=== PATIENT | female | born 1955 | race Caucasian/White ===

== ENCOUNTER 2016-10-15 12:08 | Emergency (ER) | payer BC ==
[2016-10-15 12:23] VITALS: RESP 18
--- NOTE | 2016-10-15 13:09 | ED ---
ENT HPI - General Chief complaint: Dental/Oral Stated complaint: Oral Pain Time Seen by Provider: 10/15/16 12:31 Source: patient, RN notes reviewed Mode of arrival: ambulatory Limitations: no limitations - History of Present Illness Initial comments: 61-year-old female presents emergency Department chief complaint possible tooth in throat or lung. She states that she's had a dental extraction today and which a piece went towards the back of her throat states that she started gagging and ended up swallowing it. Jonny was concerned that she may have aspirated a piece of tooth and was sent for chest x-ray. Patient has no complaints of shortness of breath. She states that she felt like it scratched her throat but has no difficulty swallowing at this time. - Related Data Home Medications Medication Instructions Recorded Confirmed Cyclobenzaprine [Flexeril] 10 mg PO HS 10/15/16 10/15/16 Gabapentin [Neurontin] 100 mg PO DAILY 10/15/16 10/15/16 HYDROcodone/APAP 5-325MG [[place] 5 mg PO Q6H 10/15/16 10/15/16 5-325] Losartan [Cozaar] 25 mg PO DAILY 10/15/16 10/15/16 Simvastatin [Zocor] 10/15/16 Allergies Allergy/AdvReac Type Severity Reaction Status Date / Time cephalexin [From Keflex] Allergy Nausea & Verified 10/15/16 12:23 Vomiting Review of Systems ROS Statement: Those systems with pertinent positive or pertinent negative responses have been documented in the HPI. ROS Other: All systems not noted in ROS Statement are negative. Past Medical History Past Medical History: Fibromyalgia, Hyperlipidemia, Hypertension, Osteoarthritis (OA), Renal Disease History of Any Multi-Drug Resistant Organisms: None Reported Past Surgical History: Appendectomy, Cholecystectomy, Hysterectomy, Tonsillectomy Past Psychological History: No Psychological Hx Reported Smoking Status: Never smoker Past Alcohol Use History: None Reported Past Drug Use History: None Reported General Exam Limitations: no limitations General appearance: alert, in no apparent distress Head exam: Present: atraumatic, normocephalic, normal inspection Eye exam: Present: normal appearance, PERRL, EOMI. Absent: scleral icterus, conjunctival injection, periorbital swelling ENT exam: Present: mucous membranes moist, TM's normal bilaterally, normal external ear exam. Absent: normal exam, normal oropharynx (Dental extractions noted left upper and lower minimal venous ooze) Neck exam: Present: normal inspection, full ROM. Absent: tenderness, meningismus, lymphadenopathy Respiratory exam: Present: normal lung sounds bilaterally. Absent: respiratory distress, wheezes, rales, rhonchi, stridor Cardiovascular Exam: Present: regular rate, normal rhythm, normal heart sounds. Absent: systolic murmur, diastolic murmur, rubs, gallop, clicks Skin exam: Present: warm, dry, intact, normal color. Absent: rash Course Vital Signs 10/15/16 12:17 Temperature 97.0 F L Pulse Rate 64 Respiratory 18 Rate Blood Pressure 149/72 O2 Sat by Pulse 98 Oximetry Medical Decision Making - Medical Decision Making 61-year-old female presented for possible swallowing of tooth. There is no evidence of soft tissue neck x-ray or chest x-ray. Most likely swallowed the piece of tooth. She states that the swelling or. At this time. Disposition Clinical Impression: Foreign body, swallowed Disposition: HOME SELF-CARE Condition: Stable Instructions: Foreign Body Ingestion (ED) Additional Instructions: Please return to the Emergency Department if symptoms worsen or any other concerns. Referrals: Manfred Lopez MD [Primary Care Provider] - 1-2 days Time of Disposition: 13:28
--- NOTE | 2016-10-15 13:17 | XR ---
EXAMINATION TYPE: XR chest 2V DATE OF EXAM: 10/15/2016 COMPARISON: NONE HISTORY: Possible foreign body. Tooth extraction. TECHNIQUE: Frontal and lateral views of the chest are obtained. FINDINGS: There is no heart failure nor confluent pneumonic infiltrate. There are no hilar masses. C ostophrenic angles are clear. Bony thorax is intact. IMPRESSION: No active cardiopulmonary disease. Normal heart. No evidence of a radiopaque foreign bod y.
--- NOTE | 2016-10-15 13:18 | XR ---
EXAMINATION TYPE: XR soft tissue neck DATE OF EXAM: 10/15/2016 COMPARISON: NONE HISTORY: Possible foreign body TECHNIQUE: 2 views FINDINGS: Epiglottis is normal. Subglottic trachea is normal. I see no evidence of a foreign body. Th ere are spondylotic changes in the lower cervical spine. IMPRESSION: Negative cervical soft tissue exam. No sign of a foreign body.
[2016-10-15 13:34] VITALS: BP 122/69; PULSE 50; TEMP 97.6
== END 2016-10-15 13:34 | disposition home or self-care (01) ==
LOC: EC 12:08
DX: T18.9XXA Foreign body of alimentary tract, part unspecified, initial encounter (principal); K08.109 Complete loss of teeth, unspecified cause, unspecified class; E78.5 Hyperlipidemia, unspecified; I10 Essential (primary) hypertension; M79.7 Fibromyalgia; Z79.891 Long term (current) use of opiate analgesic; Z79.899 Other long term (current) drug therapy; Z88.1 Allergy status to other antibiotic agents
CPT/HCPCS: 70360; 71020; 99283

== ENCOUNTER → 2020-12-07 | Outpatient (CLI) | payer MEDICARE ==
--- NOTE | 2020-12-07 11:58 | MR ---
EXAMINATION TYPE: MR shoulder RT wo con DATE OF EXAM: 12/07/2020 11:39 AM COMPARISON: NONE HISTORY: Right shoulder pain, decreased ROM. TECHNIQUE: Multiplanar multispin echo imaging of the right shoulder was performed. FINDINGS: Rotator cuff : Full thickness retracted tear of the supraspinatus tendon with fluid filled gap of lin roximately 2.1 cm. The remaining constituents of the rotator cuff are intact. There is elevation of t he humeral head relative to the central glenoid axis indicating a chronic process. Bursa: No bursal effusion or thickening is seen. Musculature: There is no muscular tear, contusion, or atrophy. Acromioclavicular joint : Moderate AC joint arthropathy. Subacromial narrowing compatible with imping ement. Osseous structures : There are no fractures or regions of abnormal bone marrow signal intensity. Long biceps tendon : The biceps tendon is normally situated within the bicipital groove. No complete or partial biceps tendon tear is present. Glenohumeral Joint fluid : Moderate joint effusion seen. Cartilage and Bone : No focal hyaline cartilage defects are noted. No Hill-Sachs, reverse Hill-Sachs, or bony Bankart lesions are seen. Labrum : There are no SLAP or soft tissue Bankart lesions. No paralabral cysts are seen. OTHER FINDINGS : none IMPRESSION: 1. Full-thickness retracted tear supraspinatus tendon with elevation of the right humeral head relati ve to the central glenoid axis and mild atrophy of the supraspinatus tendon indicating a chronic proc ess.
== END | disposition home or self-care (01) ==
LOC: RADMRIMAIN 10:51
PROVIDERS: ATTEND Orthopaedic Surgery
DX: M75.121 Complete rotator cuff tear or rupture of right shoulder, not specified as traumatic (principal)

== ENCOUNTER 2021-01-21 08:34 | Day surgery (SDC) | payer MEDICARE ==
[2021-01-20 09:43] VITALS: BMI 32.1
--- NOTE | 2021-01-20 19:32 | HP ---
HISTORY AND PHYSICAL DATE OF SURGERY: 01/21/2021 Fariha Britton is a 65-year-old patient seen with progressive right shoulder pain. We discussed options for treatment. She elected to proceed with arthroscopy. Consent was obtained. PAST MEDICAL HISTORY: Hypertension. PAST SURGICAL HISTORY: Hysterectomy. DAILY MEDICATIONS: Hydrochlorothiazide, lisinopril, hydrocodone. ALLERGIES: NONE. SOCIAL HISTORY: She denies tobacco use. PHYSICAL EVALUATION OF THE RIGHT SHOULDER: Flexion is 40 degrees. Abduction is 20 degrees. External rotation is 10 degrees with significant weakness. Tenderness along the anterolateral acromion and rotator cuff insertion site. Impingement is positive at 80 degrees. Drop-arm sign is positive. Cross-body adduction sign is positive. Distal neurovascular exam is intact. IMAGING: Right shoulder radiographs revealed a type 2 acromion, evidence for acromioclavicular joint osteoarthritis and cystic changes of the tuberosity. Right shoulder MRI revealed a retracted rotator cuff tear along with muscular atrophy, impingement and acromioclavicular joint osteoarthritis. IMPRESSION: 1. Right shoulder impingement with rotator cuff tear. 2. Right shoulder acromioclavicular joint osteoarthritis. 3. Hypertension. 4. Chronic opioid use. PLAN: Right shoulder arthroscopy with subacromial decompression, arthroscopic rotator cuff repair, Rafael procedure and debridement. MMODL / IJN: [id number] /
[~2021-01-21 08:34] MED LIST: DEXAMETHASONE SOD PHOSPHATE 4 MG/ML 1 ML VIAL IV ONE; LACTATED RINGERS 1,000 ML IV SCH; LIDOCAINE 1% (10MG/ML) FOR IV START INTRADERMA PRN; MIDAZOLAM 2 MG/2 ML VIAL IV PRN; ONDANSETRON 4 MG/2 ML VIAL IVP ONE
[2021-01-21 09:12] VITALS: RESP 16
[2021-01-21] MEDS ORDERED: MIDAZOLAM 2 MG/2 ML VIAL ONE (10:10)
[2021-01-21] MEDS ORDERED: DEXAMETHASONE SOD PHOSPHATE 4 MG/ML 1 ML VIAL ONE (10:10)
[2021-01-21] MEDS ORDERED: fentaNYL (PF) 50 MCG/ML 2 ML AMP ONE (10:10)
[2021-01-21] MEDS ORDERED: LIDOCAINE 1% INJ 10MG/ML (20 ML MDV) ONE (10:10)
[2021-01-21] MEDS ORDERED: ROPIVACAINE 5 MG/ML 30 ML VIAL ONE (10:10)
[2021-01-21] MEDS ORDERED: PROPOFOL 10 MG/ML 20 ML VIAL IV ONE (10:10)
[2021-01-21] MEDS ORDERED: SUCCINYLCHOLINE CHLORIDE 100 MG/5 ML SYR IV ONE (10:10)
[2021-01-21] MEDS ORDERED: LACTATED RINGERS 1,000 ML IV ONE (12:01)
--- NOTE | 2021-01-21 12:05 | P.OP ---
Date of Procedure: 01/21/21 Preoperative Diagnosis: Right shoulder impingement Postoperative Diagnosis: 1. Right shoulder massive retracted rotator cuff tendon tear 2. Right shoulder impingement 3. Right shoulder acromioclavicular joint osteoarthritis 4. Right shoulder partial long head biceps tendon tear Procedure(s) Performed: 1. Right shoulder arthroscopic rotator cuff repair 2. Right shoulder arthroscopic subacromial decompression 3. Right shoulder arthroscopic Rafael procedure 4. Right shoulder arthroscopic biceps tenotomy Implants: 5Arthrex swivel lock anchors Anesthesia: GETA, regional (Interscalene block) Surgeon: Antony Roe Packer And Carry Out #1: Mark Rogers Estimated Blood Loss (ml): 11 Pathology: none sent Condition: stable Disposition: PACU Indications for Procedure: 65-year-old patient seen with progressive right shoulder pain. After treatment options were discussed, she elected to proceed with arthroscopy. Operative Findings: See description of procedure Description of Procedure: Patient underwent an interscalene block by department of anesthesia. The patient was then taken to the operative suite. The patient underwent a general anesthetic by the department of anesthesia. The patient was placed into a lateral position and secured. There was appropriate padding of the bony prominence. Right shoulder was then prepped and draped in normal sterile orthopedic fashion. We placed the extremity in 10 pounds of longitudinal traction. A posterior incision was now made for a posterior working portal site. The trocar and cannula were inserted into the glenohumeral joint. Arthroscopy was initiated. Spinal needle was now inserted anteriorly, to ascertain the anterior working portal site. An incision was now made in that area, a trocar was inserted followed by a probe. There was hyperemia and partial long head biceps tendon tearing. There were grade 1/2 chondromalacia changes with no tears. There was an obvious massive rotator cuff tear that I could visualize from the glenohumeral joint. I performed an arthroscopic biceps tenotomy. I again probed the labrum and it was stable. Instruments were now removed from glenohumeral joint. Utilizing the posterior working portal site, the trocar and cannula were inserted into the subacromial space. Arthroscopy initiated. I made an incision 2 fingerbreadths lateral to the acromion. I introduced my trocar followed by my ArthroCare ablator. I now began ablating thick subacromial bursal tissue, which exposed the undersurface of the anterior acromion. There was diminished subacromial space. There was a very prominent anterior acromion. A motorized bur was introduced and a subacromial decompression was performed. I also excised some osteophytes off the inferior aspect of the distal clavicle. The AC joint was visualized and noted to be fairly arthritic. The motorized bur was introduced in the anterior portal site and a Rafael procedure was performed without difficulty, decompressing the AC joint nicely. I turned my attention to the rotator cuff. There was a 4 cm rotator cuff tear. The tendon was retracted to the level of the glenoid. There was a subscapularis tendon tear component as well. I debrided the margins getting down to stable tendon tissue. I introduced my motorized bur and abraded the footprint area, getting some petechial bleeding. I first started by working on the subscapularis tendon component tear. I passed 2 everted mattress sutures through good bites of rotator cuff tendon/subscapularis tendon. I punched the hole for placement of an anchor. All 4 suture limbs were passed through the eyelet of a 5.5 Arthrex swivel lock anchor. I place it into the pre-punch hole. I held it there while Kory MICHEL tensioned all the sutures and Depuy the ankle with good fixation noted. The suture limbs were clipped. We had a good repair of the subscapularis tendon tear. I now turned my attention to the supraspinatus tendon tear. I now made an accessory portal site off the lateral aspect of the acromion. I punched 2 holes medial for medial row fixation with the assistance of Kory MICHEL carefully tapping the punch with a mallet as I held the punch and the camera. I now introduced both anchors into the pre-punched holes and Kory MICHEL tapped them with the mallet as I held anchors and the camera. Kory MICHEL now screwed the anchors in place a while I held the anchor guide and camera. All 8 limbs of suture were now passed through good bites of rotator cuff tendon. I now punched 2 holes for lateral row fixation again I held the punch and camera while Kory MICHEL used a mallet to tap in the punch. We now passed sutures through both anchors and individually I introduced the anchors into the pre-punch holes I held the anchor guide in position with one hand holding the camera with the other hand while Kory MICHEL tensioned the sutures and screwed in the anchors one at a time. All residual suture limbs were now clipped. We had good compression of the tendon along the entire footprint. Instruments now removed from the portal sites. All portal sites were approximated with nylon suture. Sterile dressings were applied followed by a shoulder immobilizer. Mark MICHEL assisted in this complex case. The patient was awakened, transferred to a bed, and taken to recovery in stable condition.
[2021-01-21 12:13] VITALS: TEMP 97.1
[2021-01-21] MEDS: HYDROmorphone 0.5 MG/0.5 ML SYRINGE IVP PRN ×3 (12:16→12:34)
[2021-01-21] MEDS ORDERED: diphenhydrAMINE 50 MG/ML 1 ML VIAL ONE (12:24)
[2021-01-21] MEDS ORDERED: diphenhydrAMINE 50 MG/ML 1 ML VIAL IVP ONE (12:26)
[2021-01-21] MEDS ORDERED: traMADol 50 MG TAB ONE (13:34)
[2021-01-21] MEDS ORDERED: ONDANSETRON 4 MG/2 ML VIAL ONE (13:43)
[2021-01-21] MEDS ORDERED: ONDANSETRON 4 MG/2 ML VIAL IVP ONE (13:52)
[2021-01-21 14:20] VITALS: BP 127/67; PULSE 75
--- NOTE | 2021-01-21 20:25 | P.ANPRN ---
Procedure Note - Anesthesia - Nerve Block Performed Right Interscalene Single Time Out Performed: Yes Date of Procedure: 01/21/21 Procedure Start Time: 09:48 Procedure Stop Time: 09:51 Location of Patient: PreOp Indication: Acute Post-Operative Pain, Requested by Surgeon Sedation Type: Sedate with meaningful contact maintained Preparation: Sterile Prep Position: Supine Needle Types: Pajunk Needle Gauge: 21 Ultrasound used to visualize needle placement: Yes Ultrasound used to observe medication spread: Yes Blood Aspirated: No Pain Paresthesia on Injection Noted: No Resistance on Injection: Normal Image Stored and Saved: Yes Events: Uneventful and Well Tolerated (ropi .5% 25cc plus dexamethasone 4mg)
== END 2021-01-21 15:09 | disposition home or self-care (01) ==
LOC: OR 08:34
PROVIDERS: ATTEND Orthopaedic Surgery
DX: M75.101 Unspecified rotator cuff tear or rupture of right shoulder, not specified as traumatic (principal); M25.811 Other specified joint disorders, right shoulder; M19.011 Primary osteoarthritis, right shoulder; S46.111A Strain of muscle, fascia and tendon of long head of biceps, right arm, initial encounter; X58.XXXA Exposure to other specified factors, initial encounter; M94.211 Chondromalacia, right shoulder; Z90.710 Acquired absence of both cervix and uterus; M25.711 Osteophyte, right shoulder; Z79.891 Long term (current) use of opiate analgesic; Z79.899 Other long term (current) drug therapy; I10 Essential (primary) hypertension; Z90.49 Acquired absence of other specified parts of digestive tract; Z98.890 Other specified postprocedural states; Z88.1 Allergy status to other antibiotic agents
CPT/HCPCS: 64415; 76942; 29826; 29827; 29824; C1713; C1894; J2250; J1200; J1100; J0690; J2405; J2001; J3010; J2795; J0330; J2704; J1170

== ENCOUNTER 2022-07-06 22:30 | Emergency (ER) | payer MEDICARE ==
[2022-07-06 22:47] VITALS: BP 124/80; PULSE 84; RESP 14; TEMP 97.9
--- NOTE | 2022-07-06 23:15 | XR ---
EXAMINATION TYPE: XR foot complete RT DATE OF EXAM: 07/06/2022 COMPARISON: NONE HISTORY: Pain TECHNIQUE: Three views are submitted. FINDINGS: The osseous structures are intact. There is no acute fracture or dislocation. Hypertrophic arthrop athy first MTP large plantar calcaneal spur. IMPRESSION: 1. No acute fracture or dislocation. If symptoms persist, follow-up exam in 7 to 10 days could be ob tained.
--- NOTE | 2022-07-06 23:33 | ED ---
Lower Extremity Injury HPI - General Chief Complaint: Extremity Injury, Lower Stated Complaint: Right foot injury Time Seen by Provider: 07/06/22 23:01 Source: patient, RN notes reviewed Mode of arrival: ambulatory Limitations: no limitations - History of Present Illness Initial Comments: 59-year-old female presents to emergency room with chief complaint of right foot pain. Patient states that he'll be from failure came down striking her foot. Patient complains of pain. She is able to ambulate states is worse with any weightbearing or palpation. - Related Data Home Medications Medication Instructions Recorded Confirmed Cyclobenzaprine [Flexeril] 10 mg PO HS PRN 10/15/16 01/21/21 Gabapentin [Neurontin] 300 mg PO TID 10/15/16 01/21/21 HYDROcodone/APAP 5-325MG [[place] 5 mg PO Q6H PRN 10/15/16 01/21/21 5-325] Simvastatin [Zocor] 20 mg PO AC-LUNCH 10/15/16 01/21/21 Cholecalciferol (Vitamin D3) 125 mcg PO PC-LUNCH 01/20/21 01/21/21 [Vitamin D3 (125 MCG = 5,000 IU)] Loratadine 10 mg PO PC-LUNCH 01/20/21 01/21/21 Potassium Chloride [K-Tab ER] 2 tab PO PC-LUNCH 01/20/21 01/21/21 hydroCHLOROthiazide [Hydrodiuril] 25 mg PO PC-LUNCH 01/20/21 01/21/21 lisinopriL [Zestril] 10 mg PO PC-LUNCH 01/20/21 01/21/21 Previous Rx's Medication Instructions Recorded traMADol HCl [Ultram] 50 mg PO Q6H PRN #28 tab 01/21/21 Allergies Allergy/AdvReac Type Severity Reaction Status Date / Time cephalexin [From Keflex] Allergy Nausea & Verified 01/21/21 09:13 Vomiting Review of Systems ROS Statement: Those systems with pertinent positive or pertinent negative responses have been documented in the HPI. ROS Other: All systems not noted in ROS Statement are negative. Past Medical History Past Medical History: Fibromyalgia, Hyperlipidemia, Hypertension, Osteoarthritis (OA) History of Any Multi-Drug Resistant Organisms: None Reported Past Surgical History: Appendectomy, Cholecystectomy, Hysterectomy, Tonsillectomy Past Anesthesia/Blood Transfusion Reactions: No Reported Reaction Past Psychological History: No Psychological Hx Reported Smoking Status: Never smoker Past Alcohol Use History: None Reported Past Drug Use History: None Reported - Past Family History Father Family Medical History: Congestive Heart Failure (CHF) Mother Family Medical History: Cancer General Exam Limitations: no limitations General appearance: alert, in no apparent distress Head exam: Present: atraumatic, normocephalic, normal inspection Eye exam: Present: normal appearance, PERRL, EOMI. Absent: scleral icterus, conjunctival injection, periorbital swelling Respiratory exam: Present: normal lung sounds bilaterally. Absent: respiratory distress, wheezes, rales, rhonchi, stridor Cardiovascular Exam: Present: regular rate, normal rhythm, normal heart sounds. Absent: systolic murmur, diastolic murmur, rubs, gallop, clicks Extremities exam: Present: other (Right foot there is some dorsal foot abrasion, swelling and ecchymosis times with palpation neurovascular intact no malleoli tenderness) Course Vital Signs 07/06/22 22:42 Temperature 97.9 F Pulse Rate 84 Respiratory 14 Rate Blood Pressure 124/80 O2 Sat by Pulse 97 Oximetry Medical Decision Making - Medical Decision Making Was pt. sent in by a medical professional or institution (, PA, [employer] GL[employer] INSPECTOR, urgent care, hospital, or snf...) When possible be specific @ -No Did you speak to anyone other than the patient for history (EMS, parent, family, police, friend...)? What history was obtained from this source @ -No Did you review nursing and triage notes (agree or disagree)? Why? @ -I reviewed and agree with nursing and triage notes Were old charts reviewed (outside hosp., previous admission, EMS record, old EKG, old radiological studies, urgent care reports/EKG's, snf records)? Report findings @ -No old charts were reviewed Differential Diagnosis (chest pain, altered mental status, abdominal pain women, abdominal pain men, vaginal bleeding, weakness, fever, dyspnea, syncope, headache, dizziness, GI bleed, back pain, seizure, CVA, palpatations, mental health, musculoskeletal)? @ -Right foot fracture, right foot sprain right foot contusion EKG interpreted by me (3pts min.). @ -None X-rays interpreted by me (1pt min.). @ -X-ray right foot no acute fracture CT interpreted by me (1pt min.). @ -None done U/S interpreted by me (1pt. min.). @ -None done What testing was considered but not performed or refused? (CT, X-rays, U/S, labs)? Why? @ -None What meds were considered but not given or refused? Why? @ -None Did you discuss the management of the patient with other professionals (professionals i.e. DrPrice, PA, [employer] INSPECTOR, lab, RT, psych nurse, older adult social work specialist, assistant professor of physics, teacher, security control room officer, caser)? Give summary @ -No Was smoking cessation discussed for >3mins.? @ -No Was critical care preformed (if so, how long)? @ -No Were there social determinants of health that impacted care today? How? (Homelessness, low income, unemployed, alcoholism, drug addiction, transportation, low edu. Level, literacy, decrease access to med. care, prison, rehab)? @ -No Was there de-escalation of care discussed even if they declined (Discuss DNR or withdrawal of care, Hospice)? DNR status @ -No What co-morbidities impacted this encounter? (DM, HTN, Smoking, COPD, CAD, Cancer, CVA, ARF, Chemo, Hep., AIDS, mental health diagnosis, sleep apnea, morbid obesity)? @ -None Was patient admitted / discharged? Hospital course, mention meds given and route, prescriptions, significant lab abnormalities, going to OR and other per tinent info. @ -Discharge patient x-rays are negative for acute fracture. Patient right foot contusion will be discharged to admission patient takes [place] at home will continue her pain medication as directed. Undiagnosed new problem with uncertain prognosis? @ -No Drug Therapy requiring intensive monitoring for toxicity (Heparin, Nitro, Insulin, Cardizem)? @ -No Were any procedures done? @ -No Diagnosis/symptom? @ -Right foot contusion Acute, or Chronic, or Acute on Chronic? @ -Acute Uncomplicated (without systemic symptoms) or Complicated (systemic symptoms)? @ -Uncomplicated Side effects of treatment? @ -No Exacerbation, Progression, or Severe Exacerbation? @ -No Poses a threat to life or bodily function? How? (Chest pain, [place], [place], pneumonia, PE, COPD, DKA, ARF, appy, cholecystitis, CVA, Diverticulitis, Homicidal, Suicidal, threat to staff... and all critical care pts) @ -No Disposition Clinical Impression: Contusion of right foot Disposition: HOME SELF-CARE Condition: Stable Instructions (If sedation given, give patient instructions): Foot Contusion (ED) Additional Instructions: Please return to the Emergency Department if symptoms worsen or any other concerns. Is patient prescribed a controlled substance at d/c from ED?: No Referrals: Manfred Lopez MD [Primary Care Provider] - 1-2 days Time of Disposition: 23:33
== END 2022-07-06 23:48 | disposition home or self-care (01) ==
LOC: EC 22:30
DX: S90.31XA Contusion of right foot, initial encounter (principal); E78.5 Hyperlipidemia, unspecified; I10 Essential (primary) hypertension; M19.90 Unspecified osteoarthritis, unspecified site; Z88.1 Allergy status to other antibiotic agents; Z79.899 Other long term (current) drug therapy; W20.8XXA Other cause of strike by thrown, projected or falling object, initial encounter
CPT/HCPCS: 99283